=== PATIENT | female | born 1995 | race Caucasian/White ===

== ENCOUNTER 2021-05-13 09:54 | Emergency (ER) | payer MEDICAID ==
[2021-05-13] MEDS ORDERED: lidocaine 1% 20 ML MDV SUBQ ONE (12:03)
--- NOTE | 2021-05-13 12:06 | ED Physician Documentation ---
History of Present Illness - Stated complaint Stated Complaint: C+ FACIAL LUMP - History obtained from History obtained from: Patient - History of Present Illness Timing: Today - Additonal information Additional information: 25-year-old female on Suboxone has developed abscesses to her abdominal wall her cheek and her forehead. She was seen at [facility] yesterday and had I&D done of the abdominal wall abscess and she is on antibiotic clindamycin and has packing in place and she reports marked improvement. Today she has an increase in the size and pain to the spot between her eyes on the forehead. The area on the cheek has spontaneously drained. The redness is receding to the abdominal wall abscess. Review of Systems Constitutional: denies: Fever Respiratory: reports: Dyspnea, Cough GI: reports: Nausea. denies: Vomiting : denies: Dysuria Skin: reports: Lesions PD PAST MEDICAL HISTORY - Present Medications Home Medications: Ambulatory Orders Medication Instructions Recorded Confirmed Albuterol Sulf [Ventolin Hfa 1 - 2 puffs INH Q4HR PRN #1 inhaler 05/13/21 Inhaler] Promethazine [Phenergan] 25 mg PO Q6H PRN #10 tab 05/13/21 - Allergies Allergies/Adverse Reactions: Allergies Allergy/AdvReac Type Severity Reaction Status Date / Time bee venom protein (honey bee) Allergy Anaphylaxis Verified 05/13/21 12:09 cephalexin [From Keflex] Allergy Rash Verified 05/13/21 12:09 infliximab [From Remicade] Allergy Anaphylaxis Verified 05/13/21 12:09 Penicillins Allergy Rash Verified 05/13/21 12:09 pregabalin [From Lyrica] Allergy Respiratory Verified 05/13/21 12:09 PD ED PE NORMAL - Vitals Vital signs reviewed: Yes (normal ) - General General: Alert and oriented X 3, No acute distress, Well developed/nourished - HEENT HEENT: PERRL, EOMI, Other (In the center of the forehead between the eyes is a 2cm round raised erythematous spot with fluctuance. ) - Neck Neck: Supple, no meningeal sign, No bony TTP - Respiratory Respiratory: No respiratory distress - Abdomen Abdomen: Other (There is packing to a wound on the anterior abdominal wall with surrounding erythema. The area is tender and much less so today than yesterday according to the patient. 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, No motor deficit, No sensory deficit, Normal speech Eye Opening: Spontaneous Motor: Obeys Commands Verbal: Oriented GCS Score: 15 - Psych Psych: Normal mood, Normal affect Results - Vitals Vitals: Vital Signs - 24 hr 05/13/21 05/13/21 11:54 13:14 Temperature 36.7 C Heart Rate 71 71 Respiratory 16 14 Rate Blood Pressure 121/80 125/84 H O2 Saturation 100 100 Oxygen O2 Source Room air Procedures - Abscess I&D (location) forehead Preparation: Chlorhexadine, Lidocaine 1% Incision: Incised with scalpel, Purulent drainage, Loculations broken, Irrigated, Culture obtained Other: Pt tolerated well, Dressing applied, Antibiotic prescribed PD MEDICAL DECISION MAKING - ED course Complexity details: considered differential, d/w patient ED course: 25 y/o female with multiple abscesses has a spot on her forehead that has ripened and this is incised and drained with relief of pain to the patient. Departure - Departure Disposition: 01 Home, Self Care Clinical Impression: Abscess Condition: Stable Instructions: ED Abscess IandD Follow-Up: Your, doctor [Other] Prescriptions: Albuterol Sulf [Ventolin Hfa Inhaler] 1 - 2 puffs INH Q4HR PRN #1 inhaler PRN Reason: Shortness Of Air/Wheezing Promethazine [Phenergan] 25 mg PO Q6H PRN #10 tab PRN Reason: Nausea / Vomiting Discharge Date/Time: 05/13/21 13:15
[2021-05-13 13:15] VITALS: BP 125/84
== END 2021-05-13 13:15 | disposition home or self-care (01) ==
LOC: ED 09:54
DX: L02.01 Cutaneous abscess of face (principal); L02.211 Cutaneous abscess of abdominal wall
CPT/HCPCS: 10060